=== PATIENT | female | born 1965 | race Two or more races ===

== ENCOUNTER 2022-02-20 08:30 | Inpatient (IN) | payer OTHER ==
[~2022-02-20] VITALS: Ht 162.6 cm; Wt 59.9 kg
[2022-02-20] MEDS ORDERED: ZYRTEC10 M3 PO (10:10)
== END 2022-02-22 10:32 | disposition home or self-care (01) | DRG 747 ==
LOC: EDSTATUS 08:30 → O/R 02-21 06:05 → SURH 02-21 08:30 → CIR.AMB 02-21 08:30 → EDSTATUS 02-21 08:30 → OB/GYN 02-21 12:53
PROVIDERS: ADMIT Specialist; ATTEND Specialist
PROC: 0UJH8ZZ Inspection of Vagina and Cul-de-sac, Via Natural or Artificial Opening Endoscopic (ICD-10-PCS; 2022-02-21)
PROC: 0UBG7ZZ Excision of Vagina, Via Natural or Artificial Opening (ICD-10-PCS; principal; 2022-02-21 07:00)
DX: D07.1 Carcinoma in situ of vulva (principal); Z20.822 Contact with and (suspected) exposure to COVID-19